=== PATIENT | male | born 1965 | race Caucasian/White ===

== ENCOUNTER 2024-03-14 05:54 | Inpatient (IN) | payer BC ==
[2024-03-14] MEDS ORDERED: Bupivacaine/Epinephrine 0.25% 30 ML VIAL ONE (06:57)
[2024-03-14] MEDS ORDERED: Midazolam HCl 2 mg/2 ml Vial ONE (07:14)
[2024-03-14] MEDS ORDERED: ceFOXitin 1 GM VIAL ONE (07:16)
[2024-03-14] MEDS ORDERED: fentaNYL 50 mcg/mL 1 mL Vial ONE ×4 (07:17→09:03)
[2024-03-14] MEDS ORDERED: Rocuronium Bromide 10 MG/ML (10ML VIAL) ONE (07:17)
[2024-03-14] MEDS ORDERED: PROPOFOL 20 ML ONE (07:17)
[2024-03-14] MEDS ORDERED: Lidocaine 1% PF 5 ML VIAL ONE (07:17)
[2024-03-14] MEDS ORDERED: Dexamethasone 20 MG/5 ML VIAL ONE (07:49)
[2024-03-14] MEDS ORDERED: Ondansetron PF 4 MG/2 ML Vial ONE (08:15)
[2024-03-14] MEDS ORDERED: SUGAMMADEX SODIUM 200 MG/2 ML VIAL ONE (08:25)
[2024-03-14] MEDS ORDERED: Ondansetron PF 4 MG/2 ML Vial IVP PRN (08:49)
[2024-03-14] MEDS ORDERED: Dextrose 5% in Water 1,000 ML IV PRN (08:49)
[2024-03-14] MEDS ORDERED: Ipratropium/Albuterol 3 ML NEB NEB PRN (08:49)
[2024-03-14] MEDS ORDERED: hydrALAZINE 20 MG/ML VIAL SLOW IVP PRN (08:49)
[2024-03-14] MEDS ORDERED: Glucagon 1 MG/ML KIT IM PRN (08:49)
[2024-03-14] MEDS ORDERED: Naloxone HCl 0.4 mg/ml Vial IVP PRN (08:49)
[2024-03-14] MEDS ORDERED: Dextrose 50% Abboject 50 ML SYRINGE SLOW IVP PRN (08:49)
[2024-03-14] MEDS ORDERED: Promethazine HCl 25 MG/ML VIAL IM PRN (08:49)
[2024-03-14 09:44] VITALS: BMI 25.2
[2024-03-14] MEDS: D5 1/2 NS w/20 mEq KCL 1,000 ML IV SCH (10:13)
[2024-03-14] MEDS: oxyCODONE 5 MG TAB PO PRN (10:21)
[2024-03-14] MEDS: Famotidine/PF 20 mg/2ml Vial SLOW IVP SCH (10:23)
[2024-03-14] MEDS: Famotidine 20 MG TAB PO SCH (10:27)
[2024-03-14] MEDS: Ketorolac Tromethamine 30 MG (1 mL) VIAL IVP SCH (12:01)
[2024-03-14] MEDS: traMADol HCl 50 MG TAB PO PRN (12:50)
[2024-03-14] MEDS: Nicotine 14 MG PATCH TD SCH (12:51)
[2024-03-14] MEDS: Morphine 4 MG/ML VIAL SLOW IVP PRN (14:52)
[2024-03-14] MEDS: Acetaminophen 500 MG TAB PO SCH (14:52)
[2024-03-14] MEDS: Allopurinol 300 MG TAB PO SCH (20:23)
[2024-03-15] MEDS: Enoxaparin 40 MG (0.4 mL) SYRINGE SC SCH (05:36)
[2024-03-15 08:41] VITALS: BP 126/76; TEMP 98.6
== END 2024-03-15 11:13 | disposition home or self-care (01) | DRG 330 ==
LOC: CSHERHOLD 05:54 → CSHTELE 09:31 → EDSTATUS 16:00
PROVIDERS: ADMIT Surgery; ATTEND Surgery
PROC: 0DBB0ZZ Excision of Ileum, Open Approach (ICD-10-PCS; principal; 2024-03-14)
DX: K94.19 Other complications of enterostomy (principal); C20 Malignant neoplasm of rectum
CPT/HCPCS: 88304; 94760; A4649; J0694; J1100; J1650; J1885; J2250; J2272; J2405; J2704; J3010; J3480; J3490